=== PATIENT | female | born 1955 | race Caucasian/White ===

== ENCOUNTER 2024-02-10 09:36 | Inpatient (IN) ==
[2024-02-10] MEDS ORDERED: LORazepam 2 MG/ML VIAL ONE (09:39)
[2024-02-10] MEDS: LORazepam 2 MG/ML VIAL IVP ONE ×3 (09:40→21:02)
--- NOTE | 2024-02-10 10:07 | Emergency Department Note ---
HPI - Anxiety General Chief Complaint: SOB -Shortness of Breath Stated Complaint: COMPLICATIONS BREATHING Time Seen by Provider: 02/10/24 09:53 Source: patient Source comment: patient Mode of arrival: ambulance Limitations: no limitations History of Present Illness HPI narrative: 68-year-old female presented to ER via EMS from her primary care provider's office for reported shortness of breath and anxiety, on arrival patient's heart rate is elevated between 217 and 225. Patient reports that she is currently on Suboxone as well as Xanax for her anxiety and back pain. Patient reports that she is also currently on cefdinir for bronchiolitis. MD complaint: Reports anxiety and shortness of breath Onset (ago): hour(s) (1) Symptoms: Reports palpitations and other (Anxiety, cough, restlessness) Severity: moderate Quality: Reports constant Place: Reports other (Primary care provider's office) History of similar episodes: Yes Provoking factors: Reports emotional stress Relieving factors: Reports medication Exacerbating factors: Reports other (Not receiving her anxiety medication) Associated symptoms: Reports shortness of breath, palpitations and weakness Related Data Allergies Allergy/AdvReac Type Severity Reaction Status Date / Time No Known Drug Allergies Allergy Verified 02/10/24 09:50 Review of Systems Status of ROS 10 or more systems reviewed and unremark able except as noted in history and below; Negative unobtainable due to endotracheal tube, Negative unobtainable due to medical condition and Negative unobtainable due to mental status Constitutional Denies: fever, chills, change in weight, fatigue, malaise, night sweats, change in sleep pattern or other Eyes Denies: change in vision, blurry vision, blind spots, light sensitivity, eye discomfort, eye discharge, dry eyes, increased production of tears, floaters, seeing flashes, decreased night vision or other Ears, nose, mouth, and throat Denies: throat pain, neck pain, throat swelling, difficulty swallowing, hoarseness, mouth pain, swelling of lips/tongue, dry mouth, bad breath, ear pain, ear discharge, change in hearing, tinnitus, vertigo, nasal discharge, nasal congestion, nose bleeds, post nasal drip or other Cardiovascular Reports: palpitations; Denies: chest pain, edema, swelling of feet/ankles, lightheadedness, shortness of breath with exertion, shortness of breath when lying down, leg pain with exertion, bluish discoloration of hands/feet or other Respiratory Reports: shortness of breath, cough and chest congestion; Denies: wheezing, stridor, pain on inspiration, change in phlegm color, coughing up blood or other Gastrointestinal Reports: difficulty swallowing; Denies: abdominal pain, nausea, vomiting, coffee grounds in vomit, heartburn, diarrhea, constipation, bloating, belching, excessive passing of gas, feeling full early, change in bowel habits, painful bowel movements, rectal pain, rectal swelling, rectal itching, change in stool character, blood in stool, mucus in stool, white/light colored stool, fatty stool or other Genitourinary Denies: painful urination, urinary frequency, urinary urgency, urinary incontinence, blood in urine, difficulty voiding, decreased urine ouput, pelvic pain, painful menstruation, vaginal bleeding, vaginal discharge, irregular period, change in menstrual flow, absence of menstruation, genital lesion, genital itching, vaginal dryness, vaginal odor, pain during intercourse, difficulty conceiving, change in libido or other Musculoskeletal Reports: back pain; Denies: neck pain, extremity pain, extremity swelling, joint pain, limited range of motion, joint swelling, muscle cramps, muscle weakness, loss of height or other Integumentary/Breast Denies: rash, itching, redness, skin pain, skin tenderness, skin swelling, sores, new lesion, changing lesion, non-healing lesion, changes in skin color, jaundice, stretch deluna, acne, nail changes, change in hair, breast pain, breast swelling, nipple discharge, breast mass, breast skin changes, change in breast shape or other Neurological Denies: headache, numbness in extremities, weakness in extremitie s, lack of coordination, dizziness, vertigo, confusion, behavioral changes, slurred speech, difficulty communicating thoughts, seizure-like activity, involuntary movements or other Psychiatric Reports: anxiety; Denies: mood swings, panic attacks, change in sleep pattern, hopelessness, loss of interest, irritability, paranoia, memory loss, difficulty concentrating, visual hallucinations, auditory hallucinations, tactile hallucinations, suicidal ideation, homicidal ideation or other Endocrine Denies: excessive urination, excessive thirst, fatigue, cold intolerance, excessive sweating, flushing, heat intolerance, deepening of the voice, change in body appearance, change in libido or other Hematologic/Lymphatic Denies: easy bruising, easy bleeding, enlarged lymph nodes or other Allergic/Immunologic Denies: hives, throat swelling, tongue swelling, facial swelling, wheezing, itchy eyes, seasonal allergies, food intolerance or other PFSH PFSH Social History Feel stressed/tense/nervous/anxious/difficulty sleeping: very much Life stressor details: Lack of anxiety medication Exam Constitutional: normal general appearance, distress noted (moderate) and (respiratory), average body habitus, no limitations and alert Vital Signs - 24 hr 02/10/24 09:49 02/10/24 10:30 02/10/24 11:00 Temperature 98.8 F Pulse Rate 188 H 139 H 82 Respiratory Rate 24 26 H 18 Blood Pressure 175/100 116/81 111/70 Pulse Oximetry 96 95 94 L Oxygen Delivery Me thod Nasal Cannula Nasal Cannula Room Air Oxygen Flow Rate 4 4 02/10/24 11:30 02/10/24 12:00 02/10/24 12:30 Temperature Pulse Rate 71 60 82 Respiratory Rate 16 15 16 Blood Pressure 99/71 107/70 108/63 Pulse Oximetry 92 L 95 96 Oxygen Delivery Me thod Nasal Cannula Room Air Nasal Cannula Oxygen Flow Rate 4 4 02/10/24 13:00 02/10/24 13:30 Temperature Pulse Rate 76 72 Respiratory Rate 16 20 Blood Pressure 110/69 111/67 Pulse Oximetry 95 95 Oxygen Delivery Me thod Nasal Cannula Nasal Cannula Oxygen Flow Rate 4 4 HENMT: normocephalic, head/scalp atraumatic, hearing grossly normal bilaterally, external ears normal, EACs normal, nasal mucous membranes normal, external nose normal, oral mucous membranes normal, oropharynx normal, dentition normal and gingiva normal Eyes: PERRL, EOMs intact bilaterally, conjunctivae normal, no scleral icterus, no papilledema, normal visual maher by confrontation, alignment normal, periorbital findings normal and no nystagmus Neck/C-Spine: visual inspection normal, trachea midline, cervical spine nontender, cervical full ROM noted, supple, no meningeal signs and thyroid normal Lymph: no lymphadenopathy noted and no lymphedema noted Chest: inspection of chest normal, palpation of chest normal, inspection of breast(s) abnormal and palpation of breast(s) abnormal Respiratory: breath sounds equal bilaterally, normal respiratory effort, clear to auscultation bilaterally, no wheezes, no rales, no retractions and no use of accessory muscles Patient has noted nonproductive cough with clear lung maher. Cardiovascular: heart rate abnormal (217-225) (tachycardic), rhythm abnormal (Atrial fibrillation with RVR) (irregular), no gallop, no rub, no murmur, no JVD, no clicks, peripheral pulses 2+ throughout and no additional abnormal heart sounds Gastrointestinal: abdomen normal to inspection, abdomen soft to palpation, nontender to palpation, nondistended, normoactive bowel sounds, no hepatosplenomegaly, no masses, no pulsatile mass, no ascites and normal rectal exam (deferred) Genitourinary: no CVA tenderness, bladder normal to palpation, external appearance abnormal, vaginal abnormality noted (deferred), cervical abnormality noted, bimanual exam abnormal and inguinal lymphadenopathy noted Back/Pelvis: spine normal to inspection, no thoracic spine tenderness, no lumbar spine tenderness, thoracic spine ROM normal, lumbar spine ROM normal and no paraspinal muscle tenderness noted Extremities: normal to inspection, normal to palpation, no tenderness, full ROM, no joint enlargement and no deformity Neurology: operating room coordinator II-XII intact, no movement abnormality noted, no focal motor deficit noted, no sensory deficits noted, gait normal, speech normal, coordination normal, no pronator drift noted, no fasciculations noted and GCS normal Psychiatry: Mental Status Exam documented within this Exam's Psych section mental status grossly normal, oriented x3, thought process normal, cooperative, affect normal, psychomotor activity normal and memory normal Feel stressed/tense/nervous/anxious/difficulty sleeping: very much Life stressor details: Lack of anxiety medication Skin: skin color normal, no rash, no lesions, no ecchymosis noted, no wounds, no lacerations, skin turgor normal, no jaundice, no petechiae, no mottling, nails normal and no alopecia Course Course Hospital Course: 68-year-old female patient presented to ER via EMS from her primary care provider's office for anxiety and shortness of breath evaluated by physical exam, CBC, CMP, troponin, EKG, magnesium, phosphorus, urinalysis, and plain film chest x-ray results as noted in charting. On arrival patient is visibly anxious and was given 1 mg Ativan to help with her anxiety it provided minimal relief, patient is EKG was obtained showing atrial fibs with RVR at a rate of greater than 225, patient had IV established prior to leaving her primary care office so patient was given a bolus of 20 mg Cardizem IV push with noted improvement in heart rate and rhythm. Patient was watched for approximately 10 minutes with noted uptake in heart rate and change in cardiac rhythm patient was started on a Cardizem drip which help keep the patient's rate controlled in the 70s. Discussed possibility of transport to higher level of care for cardiology related to her new onset atrial fibs but due to patient's response to Cardizem we could also keep her an admission here while treating her bronchopneumonia with IV antibiotics with p.o. medication since heart rate had been reduced. Patient and decided to opt for staying here and following up with cardiology on p.o. medication and receive the IV antibiotics for her basilar bronchopneumonia. Patient had been on cefdinir previously through her primary care provider for her pneumonia and will be placed on IV antibiotics while staying here. Patient will continue to be monitored throughout her stay and if her heart rate should go back up or atrial fibrillation were not she will be given p.o. medications and transfer to a skull chopper at that time. Patient and family have agreed with treatment plan. Vital Signs Vital signs: Vital Signs Temperature 98.8 F 02/10/24 09:49 Pulse Rate 188 H 02/10/24 09:49 Respiratory Rate 24 02/10/24 09:49 Blood Pressure 175/100 02/10/24 09:49 Pulse Oximetry 96 02/10/24 09:49 Oxygen Delivery Method Nasal Cannula 02/10/24 09:49 Oxygen Flow Rate 4 02/10/24 09:49 Temperature 98.8 F 02/10/24 09:49 Pulse Rate 72 02/10/24 13:30 Respiratory Rate 20 02/10/24 13:30 Blood Pressure 111/67 02/10/24 13:30 Pulse Oximetry 95 02/10/24 13:30 Oxygen Delivery Method Nasal Cannula 02/10/24 13:30 Oxygen Flow Rate 4 02/10/24 13:30 MDM - Anxiety MDM Narrative Medical decision making narrative: Medical decision makers patient above physical exam, CBC, CMP, urinalysis, EKG, troponin, magnesium, and plain film chest x-ray. Differential Diagnosis Differential diagnosis: Likely panic disorder, acute anxiety and other (Atrial for with RVR, pneumonia, bronchitis, asthma, panic attack) Medical Records Attestation: I reviewed the patient's medical records. Lab Data Attestation: I reviewed the patient's lab results. Labs: Lab Results 02/10/24 Range/Units 10:15 WBC 7.1 (4.3-9.3) K/uL RBC 5.1 (4.00-5.50) M/uL Hgb 14.6 (12.5-15.8) gm/dL Hct 44.0 (35.9-46.7) % MCV 85.7 (81.0-93.7) fl MCH 28.4 (27.6-32.2) pg MCHC 33.1 (33.1-35.3) g/dl RDW 14.6 H (11.4-14.2) % Plt Count 180 (152-353) K/uL MPV 7.9 (6.9-10.8) fl Gran % 73.1 H (47.8-71.3) % Lymph % (Auto) 14.4 L (20.0-43.0) % [place] % (Auto) 12.0 H (3.6-9.8) % Eos % (Auto) 0.2 L (0.4-2.8) % Baso % (Auto) 0.3 (0.1-0.85) Lymph # (Auto) 1.0 L (1.1-3.1) [place] # (Auto) 0.9 L (1.1-3.1) Eos # (Auto) 0.0 (0.0-0.2) Baso # (Auto) 0.0 (0.0-0.1) Absolute Gran (auto) 5.2 (2.3-6.0) Sodium 140 (136-145) mmol/L Potassium 4.2 (3.6-5.2) mmol/L Chloride 101.0 (98-107) mmol/L Carbon Dioxide 33 H (21-32) mmol/L Anion Gap 6.0 (4-14) mEq/L BUN 15 (7-18) mg/dL Creatinine 0.8 (0.6-1.3) mg/dL Estimated GFR 81.2 (>59.9) Glucose 144 H (70-110) mg/dL Calcium 8.7 (8.5-10.1) mg/dL Magnesium 1.9 (1.8-2.4) mg/dL Total Bilirubin 0.74 (0.0-1.0) mg/dL AST 128 H (15-37) U/L ALT 66 H (30-65) U/L Alkaline Phosphatase 72 (50-136) U/L Troponin I High Sens 21.40 (4.0-60.4) ng/L Total Protein 7.8 (6.4-8.2) g/dL Albumin 3.7 (3.4-5.0) g/dL Influenza Type A Ag Negative (Negative) Influenza Type B Ag Negative (Negative) Imaging Data Imaging ordered: Chest x-ray Attestation: I have reviewed the pertinent imaging results. Radiologist's impression: EXAM: XR CHEST 1V HISTORY: DYSPNEA; CV COMPARISON: [facility] AP chest CT September 24, 2022 FINDINGS: The trachea is midline. The cardiac silhouette is normal in size. Mild emphysema is present. Patchy infiltrate is at right lower lung zones without pleural effusion. The bony thorax is unremarkable. IMPRESSION: Right lung base bronchopneumonia. THIS IS AN ELECTRONICALLY VERIFIED FINAL REPORT 02/10/2024 10:20 AM - Electronically signed by Bryan Montes MD ECG Data Attestation: I have reviewed the pertinent ECG results. Prior ECG tracings: not available for review Interpretation: Atrial fibrillation with RVR rate 217-225bpm Left anterior vascular block Probable left ventricular hypertrophy with secondary repolarization abnormality ST depression, probably rate related RR 277 QRS -84 T 104 Per patient's primary care provider patient does not have a history of atrial fib. Bradycardia with irregular rate rate of 47 Probable left ventricular hypertrophy RR 1272 ID 161 P axis 199 QRS -29 T 65 Discharge Plan Discharge Patient Disposition: Admitted As Observation Condition: Improved Chief Complaint: SOB -Shortness of Breath Clinical Impression: New onset atrial fibrillation, Anxiety, Bronchopneumonia, Hypoxia Print Language: Uzbek Referrals: Piter Rob [Primary Care Provider] - Time of Disposition: 14:15
[2024-02-10] MEDS: SODIUM CHLORIDE 0.9% IV STA (10:13)
[2024-02-10] MEDS: DILTIAZEM HCL IV STA (10:13)
[2024-02-10] MEDS ORDERED: DILTIAZEM HCL IV SCH (10:15)
[2024-02-10] MEDS ORDERED: SODIUM CHLORIDE 0.9% IV SCH (10:15)
[2024-02-10 10:23] LABS: Eosinophils%(Percent) Auto 0.2 % (0.4-2.8); Platelet Count 180 K/uL (152-353)
[2024-02-10 10:25] LABS: Basophils%(Percent) Auto 0.3 (0.1-0.85); Granulocytes % - Auto 73.1 % (47.8-71.3); Granulocytes#(Absolute)- Auto 5.2 (2.3-6.0); Mean Corpuscular Volume 85.7 fl (81.0-93.7); Monocytes #(Absolute)- Auto 0.9 (1.1-3.1); White Blood Count 7.1 K/uL (4.3-9.3)
[2024-02-10 10:47] LABS: Potassium 4.2 mmol/L (3.6-5.2)
[2024-02-10] MEDS ORDERED: ONDANSETRON HCL/PF 4 MG/2 ML VIAL ONE (11:55)
[2024-02-10] MEDS: ONDANSETRON HCL/PF 4 MG/2 ML VIAL IVP ONE (12:45)
[2024-02-10] MEDS ORDERED: KETOROLAC 30 MG/ML INJ VIAL IVP PRN (15:00)
[2024-02-10] MEDS ORDERED: ONDANSETRON HCL/PF 4 MG/2 ML VIAL INJ PRN (15:00)
[2024-02-10] MEDS: IPRATROPIUM/ALBUTEROL SULFATE 3 ML AMPUL.NEB INH SCH (15:24)
[2024-02-10] MEDS: AZITHROMYCIN 500 MG 500 MG in 0.9 % SODIUM CHLORIDE 250 ML IV SCH (16:06)
[2024-02-10] MEDS: 0.9 % SODIUM CHLORIDE 1000 ML 1,000 ML IV SCH (16:06)
[2024-02-10 16:10] LABS: Urine Appearance CLEAR (CLEAR); Urine Color YELLOW (STRAW/YELL.)
[2024-02-10 16:11] LABS: Urine Blood NEGATIVE (NEG - TRACE); Urine Urobilinogen Normal (NORMAL)
[2024-02-10] MEDS: BUDESONIDE 0.5 MG/2 ML AMPUL.NEB INH SCH (21:04)
[2024-02-11 04:48] LABS: Basophils%(Percent) Auto 0.6 (0.1-0.85); Eosinophils%(Percent) Auto 0.3 % (0.4-2.8); Granulocytes#(Absolute)- Auto 2.4 (2.3-6.0); Mean Corpuscular Volume 85.6 fl (81.0-93.7); Monocytes #(Absolute)- Auto 0.6 (1.1-3.1); Monocytes %(Percent)- Auto 13.1 % (3.6-9.8); Platelet Count 134 K/uL (152-353)
[2024-02-11] MEDS: CEFTRIAXONE SODIUM 1 GM in 0.9 % SODIUM CHLORIDE MB+ 50 ML IV SCH ×2 (08:13→15:48)
[2024-02-11] MEDS: DILTIAZEM HCL 120 MG PO SCH (14:03)
[2024-02-11 14:07] LABS: Amphetamine Screen Urine NEG. (NEGATIVE); Cannabinoid Screen Urine NEG. (NEGATIVE); Cocaine Screen Urine NEG. (NEGATIVE); Methadone Screen Urine NEG. (NEGATIVE); Opiate Screen Urine NEG. (NEGATIVE)
--- NOTE | 2024-02-11 15:06 | History & Physical Report ---
H&P: HPI History of Present Illness Chief complaint: BRONCHOPNEUMONIA, HYPOXIA, ANXIETY, NEWATRIAL FIBS Narrative: 68-year-old female presented to ER via EMS from her primary care provider's office for reported shortness of breath and anxiety, on arrival patient's heart rate is elevated between 217 and 225. Patient reports that she is currently on Suboxone as well as Xanax for her anxiety and back pain. Patient reports that she is also currently on cefdinir for bronchiolitis. Patient responded to bolus cardizem and drip actually recieved 125 mg over 1 hour and poison control contacted and they recommended patient be observed and precautions for bradycardia and hypotension. MD complaint: Reports anxiety and shortness of breath Review of Systems Status of ROS 10 or more systems reviewed and unremark able except as noted in history and below; Negative unobtainable due to endotracheal tube, Negative unobtainable due to medical condition and Negative unobtainable due to mental status Constitutional Denies: fever, chills, change in weight, fatigue, malaise, night sweats, change in sleep pattern or other Eyes Denies: change in vision, blurry vision, blind spots, light sensitivity, eye discomfort, eye discharge, dry eyes, increased production of tears, floaters, seeing flashes, decreased night vision or other Ears, nose, mouth, and throat Reports: difficulty swallowing; Denies: throat pain, neck pain, throat swelling, hoarseness, mouth pain, swelling of lips/tongue, dry mouth, bad breath, ear pain, ear discharge, change in hearing, tinnitus, vertigo, nasal discharge, nasal congestion, nose bleeds, post nasal drip or other Cardiovascular Reports: palpitations and shortness of breath with exertion; Denies: chest pain, edema, swelling of feet/ankles, lightheadedness, shortness of breath when lying down, leg pain with exertion, bluish discoloration of hands/feet or other Respiratory Reports: shortness of breath, cough and chest congestion; Denies: wheezing, stridor, pain on inspiration, change in phlegm color, coughing up blood or other Gastrointestinal Reports: difficulty swallowing; Denies: abdominal pain, nausea, vomiting, coffee grounds in vomit, heartburn, diarrhea, constipation, bloating, belching, excessive passing of gas, feeling full early, change in bowel habits, painful bowel movements, rectal pain, rectal swelling, rectal itching, change in stool character, blood in stool, mucus in stool, white/light colored stool, fatty stool or other Genitourinary Denies: painful urination, urinary frequency, urinary urgency, urinary incontinence, blood in urine, difficulty voiding, decreased urine ouput, pelvic pain, painful menstruation, vaginal bleeding, vaginal discharge, irregular period, change in menstrual flow, absence of menstruation, genital lesion, genital itching, vaginal dryness, vaginal odor, pain during intercourse, difficulty conceiving, change in libido or other Musculoskeletal Reports: back pain; Denies: neck pain, extremity pain, extremity swelling, joint pain, limited range of motion, joint swelling, muscle cramps, muscle weakness, loss of height or other Integumentary/Breast Denies: rash, itching, redness, skin pain, skin tenderness, skin swelling, sores, new lesion, changing lesion, non-healing lesion, changes in skin color, jaundice, stretch deluna, acne, nail changes, change in hair, breast pain, breast swelling, nipple discharge, breast mass, breast skin changes, change in breast shape or other Neurological Denies: headache, numbness in extremities, weakness in extremit ies, lack of coordination, dizziness, vertigo, confusion, behavioral changes, slurred speech, difficulty communicating thoughts, seizure-like activity, involuntary movements or other Psychiatric Reports: anxiety; Denies: mood swings, panic attacks, change in sleep pattern, hopelessness, loss of interest, irritability, paranoia, memory loss, difficulty concentrating, visual hallucinations, auditory hallucinations, tactile hallucinations, suicidal ideation, homicidal ideation or other Endocrine Denies: excessive urination, excessive thirst, fatigue, cold intolerance, excessive sweating, flushing, heat intolerance, deepening of the voice, change in body appearance, change in libido or other Hematologic/Lymphatic Denies: easy bruising, easy bleeding, enlarged lymph nodes or other Allergic/Immunologic Denies: hives, throat swelling, tongue swelling, facial swelling, wheezing, itchy eyes, seasonal allergies, food intolerance or other [facility] Medical History (Updated 02/11/24 @ 15:18 by Jia Hickman DO) History of ectopic Allergic rhinitis Vitamin D deficiency History of drug abuse in remission COPD exacerbation Anxiety GERD without esophagitis Surgical History (Updated 02/11/24 @ 15:18 by Jia Hickman DO) History of percutaneous endoscopic gastrostomy Hx of tracheostomy Hx of unilateral salpingectomy Social History Problems where you live: no known problems Highest level of school completed/degree received: College Feel stressed/tense/nervous/anxious/difficulty sleeping: very much Life stressor details: Lack of anxiety medication Meds Home Medications and Allergies Home Medications Medication Instructions Recorded Confirmed Type cefdinir 300 mg capsule 300 mg PO BID 02/10/24 02/10/24 History ergocalciferol (vitamin D2) 1,250 50,000 unit PO QWEEK 02/10/24 02/10/24 History mcg (50,000 unit) capsule gabapentin 800 mg tablet 800 mg PO TID 02/10/24 02/10/24 History levalbuterol HCl 0.63 mg/3 mL 0.63 mg inhalation Q4H 02/10/24 02/10/24 History solution for nebulization montelukast 10 mg tablet 10 mg PO DAILY 02/10/24 02/10/24 History ondansetron 8 mg disintegrating 8 mg PO Q8H PRN nausea and vomiting 02/10/24 02/10/24 History tablet pantoprazole 40 mg tablet,delayed 40 mg PO DAILY 02/10/24 02/10/24 History release Allergies Allergy/AdvReac Type Severity Reaction Status Date / Time zolpidem (From Ambien) AdvReac Verified 02/10/24 20:55 Exam Constitutional: normal general appearance, distress noted (moderate) and (respiratory), average body habitus, no limitations and alert Vital Signs - 24 hr 02/10/24 15:24 02/10/24 19:32 02/10/24 21:04 Temperature 98.5 F Pulse Rate Pulse Rate [Brachi al] 79 Respiratory Rate 22 Blood Pressure Blood Pressure [Ri ght Arm] 140/71 Pulse Oximetry 95 100 97 Oxygen Delivery Me thod Nasal Cannula Nasal Cannula Oxygen Flow Rate 4 02/10/24 21:04 02/10/24 23:29 02/11/24 03:31 Temperature 99.9 F H 98.9 F Pulse Rate Pulse Rate [Brachi al] 96 H 83 Respiratory Rate 19 20 Blood Pressure Blood Pressure [Ri ght Arm] 90/54 88/48 Pulse Oximetry 97 93 L 96 Oxygen Delivery Me thod Nasal Cannula Nasal Cannula Nasal Cannula Oxygen Flow Rate 2 02/11/24 07:30 02/11/24 07:30 02/11/24 08:00 Temperature 97.9 F Pulse Rate Pulse Rate [Brachi al] 98 H Respiratory Rate 18 Blood Pressure Blood Pressure [Ri ght Arm] 115/58 Pulse Oximetry 98 98 97 Oxygen Delivery Me thod Nasal Cannula Nasal Cannula Oxygen Flow Rate 3 2.5 02/11/24 11:14 02/11/24 12:00 02/11/24 14:03 Temperature 97.4 F L Pulse Rate 161 H Pulse Rate [Brachi al] 98 H Respiratory Rate 18 Blood Pressure 115/58 Blood Pressure [Ri ght Arm] 114/67 Pulse Oximetry 97 98 Oxygen Delivery Me thod Nasal Cannula Oxygen Flow Rate 1.5 02/11/24 14:03 Temperature Pulse Rate 161 H Pulse Rate [Brachi al] Respiratory Rate Blood Pressure 115/58 Blood Pressure [Ri ght Arm] Pulse Oximetry Oxygen Delivery Me thod Oxygen Flow Rate HENMT: normocephalic, head/scalp atraumatic, hearing grossly normal bilaterally, external ears normal, EACs normal, nasal mucous membranes normal, external nose normal, oral mucous membranes normal, oropharynx normal, dentition normal and gingiva normal Eyes: PERRL, EOMs intact bilaterally, conjunctivae normal, no scleral icterus, no papilledema, normal visual maher by confrontation, alignment normal, periorbital findings normal and no nystagmus Neck/C-Spine: visual inspection normal, trachea midline, cervical spine nontender, cervical full ROM noted, supple, no meningeal signs and thyroid normal Lymph: no lymphadenopathy noted and no lymphedema noted Chest: inspection of chest normal, palpation of chest normal, inspection of breast(s) abnormal and palpation of breast(s) abnormal Respiratory: breath sounds equal bilaterally, normal respiratory effort, clear to auscultation bilaterally, no wheezes, no rales, no retractions and no use of accessory muscles Patient has noted nonproductive cough with clear lung maher. Cardiovascular: heart rate abnormal (217-225) (tachycardic), rhythm abnormal (Atrial fibrillation with RVR) (irregular), no gallop, no rub, no murmur, no JVD, no clicks, peripheral pulses 2+ throughout and no additional abnormal heart sounds Gastrointestinal: abdomen normal to inspection, abdomen soft to palpation, nontender to palpation, nondistended, normoactive bowel sounds, no hepatosplenomegaly, no masses, no pulsatile mass, no ascites and normal rectal exam (deferred) Genitourinary: no CVA tenderness, bladder normal to palpation, external appearance abnormal, vaginal abnormality noted (deferred), cervical abnormality noted, bimanual exam abnormal and inguinal lymphadenopathy noted Back/Pelvis: spine normal to inspection, no thoracic spine tenderness, no lumbar spine tenderness, thoracic spine ROM normal, lumbar spine ROM normal and no paraspinal muscle tenderness noted Extremities: normal to inspection, normal to palpation, no tenderness, full ROM, no joint enlargement and no deformity Neurology: comber operator II-XII intact, no movement abnormality noted, no focal motor deficit noted, no sensory deficits noted, gait normal, speech normal, coordination normal, no pronator drift noted, no fasciculations noted and GCS normal Psychiatry: Mental Status Exam documented within this Exam's Psych section mental status grossly normal, oriented x3, thought process normal, cooperative, affect normal, psychomotor activity normal and memory normal Skin: skin color normal, no rash, no lesions, no ecchymosis noted, no wounds, no lacerations, skin turgor normal, no jaundice, no petechiae, no mottling, nails normal and no alopecia Assessment and Plan Assessment and Plan (1) Atrial fibrillation with RVR: Code(s): I48.91 - Unspecified atrial fibrillation (2) Community acquired pneumonia of right lower lobe of lung: Code(s): J18.9 - Pneumonia, unspecified organism (3) New onset atrial fibrillation: Code(s): I48.91 - Unspecified atrial fibrillation (4) Anxiety: Code(s): F41.9 - Anxiety disorder, unspecified (5) GERD without esophagitis: Code(s): K21.9 - Gastro-esophageal reflux disease without esophagitis (6) History of drug abuse in remission: Code(s): F19.11 - Other psychoactive substance abuse, in remission (7) COPD exacerbation: Code(s): J44.1 - Chronic obstructive pulmonary disease with (acute) exacerbation Plan fluids at 100 ml per hour solumedrol 40 mg IV every 8 hours Ativan 1 mg every 12 hours to stop benzo withdrawals as patient taken them for years Rocephin 1 gram IV every 12 hours Zithromax 500 mg IV every day nuclear monitoring technician and continuous pulse ox oxygen 2 liters as tolerated as patient uses at home at night and PRN start Eliquis 5 mg po bid Cardizem CD 120 mg po daily once out from the accidental bolus of Cardizem Results Labs Labs: CBC WBC 5.0 K/uL (4.3-9.3) 02/11/24 04:40 RBC 4.0 M/uL (4.00-5.50) 02/11/24 04:40 Hgb 11.1 gm/dL (12.5-15.8) L 02/11/24 04:40 Hct 34.0 % (35.9-46.7) L 02/11/24 04:40 MCV 85.6 fl (81.0-93.7) 02/11/24 04:40 MCH 27.8 pg (27.6-32.2) 02/11/24 04:40 MCHC 32.5 g/dl (33.1-35.3) L 02/11/24 04:40 RDW 14.3 % (11.4-14.2) H 02/11/24 04:40 Plt Count 134 K/uL (152-353) L 02/11/24 04:40 MPV 7.6 fl (6.9-10.8) 02/11/24 04:40 Gran % 49.0 % (47.8-71.3) 02/11/24 04:40 Lymph % (Auto) 37.0 % (20.0-43.0) 02/11/24 04:40 Guthrie % (Auto) 13.1 % (3.6-9.8) H 02/11/24 04:40 Eos % (Auto) 0.3 % (0.4-2.8) L 02/11/24 04:40 Baso % (Auto) 0.6 (0.1-0.85) 02/11/24 04:40 Lymph # (Auto) 1.8 (1.1-3.1) 02/11/24 04:40 Guthrie # (Auto) 0.6 (1.1-3.1) L 02/11/24 04:40 Eos # (Auto) 0.0 (0.0-0.2) 02/11/24 04:40 Baso # (Auto) 0.0 (0.0-0.1) 02/11/24 04:40 Absolute Gran (auto) 2.4 (2.3-6.0) 02/11/24 04:40 BMP Sodium 141 mmol/L (136-145) 02/11/24 04:40 Potassium 4.0 mmol/L (3.6-5.2) 02/11/24 04:40 Chloride 103.0 mmol/L (98-107) 02/11/24 04:40 Carbon Dioxide 32 mmol/L (21-32) 02/11/24 04:40 Anion Gap 6.0 mEq/L (4-14) 02/11/24 04:40 BUN 10 mg/dL (7-18) 02/11/24 04:40 Creatinine 0.6 mg/dL (0.6-1.3) 02/11/24 04:40 Estimated GFR 98.9 (>59.9) 02/11/24 04:40 Glucose 106 mg/dL (70-110) 02/11/24 04:40 Calcium 8.4 mg/dL (8.5-10.1) L 02/11/24 04:40 Magnesium 1.9 mg/dL (1.8-2.4) 02/10/24 10:15 Total Bilirubin 0.46 mg/dL (0.0-1.0) 02/11/24 04:40 AST 82 U/L (15-37) H 02/11/24 04:40 ALT 44 U/L (30-65) 02/11/24 04:40 Alkaline Phosphatase 54 U/L (50-136) 02/11/24 04:40 Total Protein 6.3 g/dL (6.4-8.2) L 02/11/24 04:40 Albumin 3.0 g/dL (3.4-5.0) L 02/11/24 04:40 Cardiac Enzymes Troponin I High Sens 21.40 ng/L (4.0-60.4) 02/10/24 10:15 Liver Function Total Bilirubin 0.46 mg/dL (0.0-1.0) 02/11/24 04:40 AST 82 U/L (15-37) H 02/11/24 04:40 ALT 44 U/L (30-65) 02/11/24 04:40 Alkaline Phosphatase 54 U/L (50-136) 02/11/24 04:40 Total Protein 6.3 g/dL (6.4-8.2) L 02/11/24 04:40 Albumin 3.0 g/dL (3.4-5.0) L 02/11/24 04:40 Urine Urine Color Yellow (STRAW/YELL.) 02/10/24 16:05 Urine Appearance Clear (CLEAR) 02/10/24 16:05 Ur Specific [place] 1.030 (1.001-1.035) 02/10/24 16:05 Urine Protein Trace (NEGATIVE) 02/10/24 16:05 Urine Glucose (UA) Normal (NORMAL) 02/10/24 16:05 Urine Ketones Negative (NEGATIVE) 02/10/24 16:05 Urine Occult Blood Negative (NEG - TRACE) 02/10/24 16:05 Urine Nitrite Negative (NEGATIVE) 02/10/24 16:05 Urine Bilirubin Negative (NEGATIVE) 02/10/24 16:05 Urine Urobilinogen Normal (NORMAL) 02/10/24 16:05 Ur Leukocyte Esterase Negative (NEGATIVE) 02/10/24 16:05 ABG Attestation: I have reviewed the pertinent ABG results. Pulse Oximetry Attestation: I have reviewed the pertinent pulse oximetry results. ECG Attestation: I have reviewed the pertinent ECG results. Imaging Imaging ordered: Chest x-ray Radiologist's impression: XR CHEST 1V HISTORY: DYSPNEA; CV COMPARISON: [facility] chest CT September 24, 2022 FINDINGS: The trachea is midline. The cardiac silhouette is normal in size. Mild emphysema is present. Patchy infiltrate is at right lower lung zones without pleural effusion. The bony thorax is unremarkable. IMPRESSION: Right lung base bronchopneumonia.
[2024-02-11] MEDS: APIXABAN 2.5 MG TABLET PO SCH (15:16)
[2024-02-11] MEDS: MONTELUKAST SODIUM 10 MG TABLET PO SCH (15:17)
[2024-02-11] MEDS: PANTOPRAZOLE SODIUM 40 MG TABLET.DR PO SCH (15:17)
[2024-02-11] MEDS: LORazepam 2 MG/ML VIAL IVP PRN (16:21)
[2024-02-11] MEDS: METHYLPREDNISOLONE SOD SUCC/PF 40 MG/ML VIAL INJ SCH (16:21)
[2024-02-11] MEDS ORDERED: CEFTRIAXONE SODIUM 1 GM in 0.9 % SODIUM CHLORIDE MB+ 50 ML IV SCH (17:00)
[2024-02-11] MEDS: METOPROLOL TARTRATE 5 MG/5 ML VIAL INJ ONE (18:23)
[2024-02-11] MEDS: levalbuterol HCL 1.25 MG/3 ML VIAL.NEB INH SCH (20:51)
[2024-02-12] MEDS: LORazepam 2 MG/ML VIAL IVP ONE ×2 (01:37→12:01)
[2024-02-12] MEDS: MORPHINE SULFATE 4 MG/ML CARTRIDGE IV PRN (01:38)
[2024-02-12 06:22] LABS: Potassium 3.7 mmol/L (3.6-5.2)
[2024-02-12 06:37] LABS: Basophils%(Percent) Auto 0.3 (0.1-0.85); Granulocytes % - Auto 79.8 % (47.8-71.3); Hematocrit 35.4 % (35.9-46.7); Mean Corpuscular Volume 85.4 fl (81.0-93.7); Monocytes #(Absolute)- Auto 0.1 (1.1-3.1); Monocytes %(Percent)- Auto 3.1 % (3.6-9.8); Platelet Count 141 K/uL (152-353); White Blood Count 2.5 K/uL (4.3-9.3)
[2024-02-12] MEDS ORDERED: BUPRENORPHINE HCL PO PRN (11:39)
[2024-02-12] MEDS ORDERED: NALOXONE HCL PO PRN (11:39)
--- NOTE | 2024-02-12 11:41 | Progress Note ---
Progress Note: Subjective Subjective Interval history: Patient not sleeping well and despite ativan and morphine patient only slept for 30 minutes or so. Not had her suboxone since in the hospital and not on her home med list at this time but patient reports taking 8/2 at home 3 times a day and she is in the process with Shani from Dr Alves office of weaning off of the medicine. patient states she is breathing better today and really wants to go home so she can get her suboxone and her gabepentin and she thinks her breathing is better and she is upset that she has not been able to sleep. Exam Constitutional: abnormal general appearance (disheveled), (chronically ill) and (frail appearing), distress noted (moderate) and (respiratory), abnormal body habitus (cachectic) and (thin), limitations noted (physical limitations) and alert Vital Signs - 24 hr 02/11/24 12:00 02/11/24 14:03 02/11/24 14:03 Temperature 97.4 F L Pulse Rate 161 H 161 H Pulse Rate [Brachi al] 98 H Respiratory Rate 18 Blood Pressure 115/58 115/58 Blood Pressure [Ri ght Arm] 114/67 Pulse Oximetry 98 Oxygen Delivery Me thod Nasal Cannula Oxygen Flow Rate 1.5 02/11/24 15:00 02/11/24 15:17 02/11/24 15:43 Temperature 98.4 F Pulse Rate 108 H Pulse Rate [Brachi al] 94 H Respiratory Rate 18 Blood Pressure 110/80 Blood Pressure [Ri ght Arm] 120/75 Pulse Oximetry 98 95 Oxygen Delivery Me thod Oxygen Flow Rate 02/11/24 18:23 02/11/24 18:37 02/11/24 20:00 Temperature 98.1 F Pulse Rate 158 H 118 H Pulse Rate [Brachi al] 98 H Respiratory Rate 24 Blood Pressure 123/62 Blood Pressure [Ri ght Arm] 131/77 Pulse Oximetry 92 L Oxygen Delivery Me thod Nasal Cannula Oxygen Flow Rate 4 02/11/24 20:51 02/11/24 20:52 02/12/24 00:00 Temperature 97.6 F Pulse Rate Pulse Rate [Brachi al] 93 H Respiratory Rate 22 Blood Pressure Blood Pressure [Ri ght Arm] 121/70 Pulse Oximetry 97 97 93 L Oxygen Delivery Me thod Nasal Cannula Nasal Cannula Oxygen Flow Rate 2 02/12/24 04:00 02/12/24 04:32 02/12/24 07:42 Temperature 97.4 F L Pulse Rate Pulse Rate [Brachi al] 74 Respiratory Rate 22 Blood Pressure Blood Pressure [[facility] Arm] 125/61 Pulse Oximetry 94 L 99 93 L Oxygen Delivery Me thod Nasal Cannula Oxygen Flow Rate 02/12/24 07:42 02/12/24 07:57 02/12/24 09:14 Temperature 97.9 F Pulse Rate 89 Pulse Rate [Brachi al] 72 Respiratory Rate 16 Blood Pressure Blood Pressure [[facility] Arm] 128/66 Pulse Oximetry 93 L 98 Oxygen Delivery Me thod Nasal Cannula Aerosol Mask Oxygen Flow Rate 2 HENMT: normocephalic, head/scalp atraumatic, hearing grossly normal bilateral ly, external ears normal, EACs normal, TMs abnormal, nasal mucous membranes normal, external nose normal, oral mucous membranes normal, oropharynx abnormal, dentition normal and gingiva normal Eyes: PERRL, EOMs intact bilaterally, conjunctivae normal, no scleral icterus, papilledema noted, normal visual maher by confrontation, alignment normal, periorbital findings normal and no nystagmus Neck/C-Spine: trachea midline, cervical spine tenderness noted, abnormal cervical ROM noted, not supple (posterior leads tight and head leans forward), no meningeal signs and thyroid normal Lymph: no lymphadenopathy noted and no lymphedema noted Chest: inspection of chest normal, palpation of chest normal, inspection of breast(s) abnormal and palpation of breast(s) abnormal Respiratory: breath sounds equal bilaterally, normal respiratory effort, clear to auscultation bilaterally, no wheezes, no rales, no retractions and no use of accessory muscles Patient has noted nonproductive cough with clear lung maher. Cardiovascular: heart rate abnormal (217-225) (tachycardic), rhythm abnormal (Atrial fibrillation with RVR) (irregular), no gallop, no rub, no murmur, no JVD, no clicks, peripheral pulses 2+ throughout and no additional abnormal heart sounds Gastrointestinal: abdomen normal to inspection, abdomen soft to palpation, nontender to palpation, nondistended, normoactive bowel sounds, no hepatosplenomegaly, no masses, no pulsatile mass, no ascites, no hernia and normal rectal exam (deferred) Genitourinary: no CVA tenderness, bladder normal to palpation, external appearance abnormal, vaginal abnormality noted (deferred), cervical abnormality noted, bimanual exam abnormal and inguinal lymphadenopathy noted Back/Pelvis: spine normal to inspection, no thoracic spine tenderness, no lumbar spine tenderness, thoracic spine ROM normal, lumbar spine ROM normal and no paraspinal muscle tenderness noted Extremities: normal to palpation, no tenderness, full ROM, joint enlargement noted and no deformity Neurology: food and beverage controller II-XII intact, no movement abnormality noted, no focal motor deficit noted, sensory deficit noted, deep tendon reflexes 2+ bilaterally, gait abnormality noted, speech normal, coordination normal, no pronator drift noted, no fasciculations noted and GCS normal Psychiatry: Mental Status Exam documented within this Exam's Psych section mental status grossly normal, oriented x3, thought process abnormality noted (racing thoughts), cooperative, affect abnormality noted (anxious), psychomotor abnormality noted (agitated) and (restless) and memory normal Feel stressed/t ense/nervous/anxious/difficulty sleeping: decline to answer Skin: skin color normal, no rash, no lesions, no ecchymosis noted, no wounds, no lacerations, skin turgor normal, no jaundice, no petechiae, no mottling, nails abnormality noted and no alopecia Progress Note: Objective Labs Labs: CBC WBC 2.5 K/uL (4.3-9.3) L 02/12/24 05:08 RBC 4.1 M/uL (4.00-5.50) 02/12/24 05:08 Hgb 11.6 gm/dL (12.5-15.8) L 02/12/24 05:08 Hct 35.4 % (35.9-46.7) L 02/12/24 05:08 MCV 85.4 fl (81.0-93.7) 02/12/24 05:08 MCH 27.9 pg (27.6-32.2) 02/12/24 05:08 MCHC 32.7 g/dl (33.1-35.3) L 02/12/24 05:08 RDW 14.1 % (11.4-14.2) 02/12/24 05:08 Plt Count 141 K/uL (152-353) L 02/12/24 05:08 MPV 8.2 fl (6.9-10.8) 02/12/24 05:08 Gran % 79.8 % (47.8-71.3) H 02/12/24 05:08 Lymph % (Auto) 16.8 % (20.0-43.0) L 02/12/24 05:08 Dale % (Auto) 3.1 % (3.6-9.8) L 02/12/24 05:08 Eos % (Auto) 0.0 % (0.4-2.8) L 02/12/24 05:08 Baso % (Auto) 0.3 (0.1-0.85) 02/12/24 05:08 Lymph # (Auto) 0.4 (1.1-3.1) L 02/12/24 05:08 Dale # (Auto) 0.1 (1.1-3.1) L 02/12/24 05:08 Eos # (Auto) 0.0 (0.0-0.2) 02/12/24 05:08 Baso # (Auto) 0.0 (0.0-0.1) 02/12/24 05:08 Absolute Gran (auto) 2.0 (2.3-6.0) L 02/12/24 05:08 BMP Sodium 145 mmol/L (136-145) 02/12/24 05:08 Potassium 3.7 mmol/L (3.6-5.2) 02/12/24 05:08 Chloride 105.0 mmol/L (98-107) 02/12/24 05:08 Carbon Dioxide 33 mmol/L (21-32) H 02/12/24 05:08 Anion Gap 7.0 mEq/L (4-14) 02/12/24 05:08 BUN 6 mg/dL (7-18) L 02/12/24 05:08 Creatinine 0.5 mg/dL (0.6-1.3) L 02/12/24 05:08 Estimated GFR 103.4 (>59.9) 02/12/24 05:08 Glucose 149 mg/dL (70-110) H 02/12/24 05:08 Calcium 8.8 mg/dL (8.5-10.1) 02/12/24 05:08 Phosphorus 3.2 mg/dL (2.5-4.9) 02/12/24 05:08 Magnesium 1.9 mg/dL (1.8-2.4) 02/12/24 05:08 Total Bilirubin 0.47 mg/dL (0.0-1.0) 02/12/24 05:08 AST 71 U/L (15-37) H 02/12/24 05:08 ALT 51 U/L (30-65) 02/12/24 05:08 Alkaline Phosphatase 57 U/L (50-136) 02/12/24 05:08 Total Protein 7.0 g/dL (6.4-8.2) 02/12/24 05:08 Albumin 3.2 g/dL (3.4-5.0) L 02/12/24 05:08 Cardiac Enzymes Troponin I High Sens 21.40 ng/L (4.0-60.4) 02/10/24 10:15 Liver Function Total Bilirubin 0.47 mg/dL (0.0-1.0) 02/12/24 05:08 AST 71 U/L (15-37) H 02/12/24 05:08 ALT 51 U/L (30-65) 02/12/24 05:08 Alkaline Phosphatase 57 U/L (50-136) 02/12/24 05:08 Total Protein 7.0 g/dL (6.4-8.2) 02/12/24 05:08 Albumin 3.2 g/dL (3.4-5.0) L 02/12/24 05:08 Urine Urine Color Yellow (STRAW/YELL.) 02/10/24 16:05 Urine Appearance Clear (CLEAR) 02/10/24 16:05 Ur Specific [place] 1.030 (1.001-1.035) 02/10/24 16:05 Urine Protein Trace (NEGATIVE) 02/10/24 16:05 Urine Glucose (UA) Normal (NORMAL) 02/10/24 16:05 Urine Ketones Negative (NEGATIVE) 02/10/24 16:05 Urine Occult Blood Negative (NEG - TRACE) 02/10/24 16:05 Urine Nitrite Negative (NEGATIVE) 02/10/24 16:05 Urine Bilirubin Negative (NEGATIVE) 02/10/24 16:05 Urine Urobilinogen Normal (NORMAL) 02/10/24 16:05 Ur Leukocyte Esterase Negative (NEGATIVE) 02/10/24 16:05 ECG Attestation: I have reviewed the pertinent ECG results. Imaging Chest x-ray: Attestation: I have reviewed the pertinent imaging results. Radiologist's impression: Chest PA and lateral views HISTORY: Follow-up pneumonia COMPARISON: 02/10/2024 FINDINGS: Heart size normal with symmetric pulmonary hyperinflation. The left lung remains clear. There is a persistent infiltrate in the medial segment of the right middle lobe. No dominant mass, adenopathy or pleural effusion. IMPRESSION: Unchanged appearance of right middle lobe pneumonia/atelectasis. 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 Fall Risk Details Aguirre Fall Scale Risk Level: Moderate Fall Risk Current Medications: Current Medications Apixaban (Apixaban 2.5 Mg Tablet) 5 mg PO BID [facility] Last Admin: 02/12/24 09:14 Dose: 5 mg Budesonide (Budesonide 0.5 Mg/2 Ml Ampul.Neb) 1 mg INH RBID [facility] Last Admin: 02/12/24 07:42 Dose: 1 mg Diltiazem HCl (Diltiazem Hcl 120 Mg Cap.Er.12h) 120 mg PO DAILY [facility] Last Admin: 02/12/24 09:14 Dose: 120 mg Azithromycin 500 mg/ Sodium (Chloride) 250 mls @ 250 mls/hr IV Q24H [facility] Stop: 02/12/24 16:59 Last Infusion: 02/11/24 16:28 Dose: Infused Ceftriaxone Sodium 1 gm/ (Sodium Chloride) 50 mls @ 100 mls/hr IV Q12H [facility] Last Infusion: 02/12/24 04:01 Dose: Infused Ketorolac Tromethamine (Ketorolac 30 Mg/Ml Inj Vial) 15 mg IVP Q6H PRN PRN Reason: Moderate Pain SCALE 5-7 Levalbuterol HCl (Levalbuterol Hcl 1.25 Mg/3 Ml Vial.Neb) 1.25 mg INH RQ8 [facility] Last Admin: 02/11/24 20:51 Dose: 1.25 mg Lorazepam (Lorazepam 2 Mg/Ml Vial) 1 mg IVP Q12H PRN; Protocol PRN Reason: Anxiety Last Admin: 02/11/24 16:21 Dose: 1 mg Methylprednisolone Sodium Succinate (Methylprednisolone Sod Succ/Pf 40 Mg/Ml Vial) 40 mg INJ Q8H [facility] Last Admin: 02/12/24 09:14 Dose: 40 mg Montelukast Sodium (Montelukast Sodium 10 Mg Tablet) 10 mg PO DAILY [facility] Last Admin: 02/12/24 09:14 Dose: 10 mg Morphine Sulfate (Morphine Sulfate 4 Mg/Ml Cartridge) 4 mg IV Q6H PRN PRN Reason: Severe Pain SCALE 8-10 Last Admin: 02/12/24 01:38 Dose: 4 mg Non-Formulary Medication (Gabapentin) 800 mg PO TID [facility] Ondansetron HCl (Ondansetron Hcl/Pf 4 Mg/2 Ml Vial) 4 mg INJ Q6H PRN PRN Reason: Nausea And Vomiting Pantoprazole Sodium (Pantoprazole Sodium 40 Mg Tablet.) 40 mg PO DAILY [facility] Last Admin: 02/12/24 09:14 Dose: 40 mg Time Spent With Patient Time: Total time spent is greater than 50% in coordination of care (as documented) at patient's floor/unit and/or counseling patient: Time with patient: greater than 35 minutes
[2024-02-12] MEDS: MELATONIN 5 MG TABLET PO ONE (12:01)
[2024-02-12] MEDS: GABAPENTIN 400 MG CAPSULE PO SCH (15:13)
[2024-02-13 04:03] VITALS: TEMP 98.3
[2024-02-13 05:16] LABS: Basophils%(Percent) Auto 0.1 (0.1-0.85); Granulocytes % - Auto 89.9 % (47.8-71.3); Granulocytes#(Absolute)- Auto 7.8 (2.3-6.0); Hematocrit 33.1 % (35.9-46.7); Monocytes #(Absolute)- Auto 0.4 (1.1-3.1); Monocytes %(Percent)- Auto 4.2 % (3.6-9.8); Platelet Count 161 K/uL (152-353); White Blood Count 8.6 K/uL (4.3-9.3)
[2024-02-13 05:33] LABS: Potassium 3.9 mmol/L (3.6-5.2)
[2024-02-13 07:32] VITALS: RESP 19
[2024-02-13 08:28] VITALS: BP 131/61; PULSE 67
--- NOTE | 2024-02-13 13:56 | Discharge Summary ---
DS: Providers Provider Date of admission: 02/10/24 14:33 Primary care physician: Piter Rob Admitting clinician: Elmer Lozano Attending physician on admission: Jia Hickman Attending physician on discharge: Jia Hickman Discharging clinician: Jia Hickman Anticipated date of discharge: 02/13/24 DS: Diagnosis Discharge Diagnosis (1) Atrial fibrillation with RVR: (2) Community acquired pneumonia of right lower lobe of lung: (3) New onset atrial fibrillation: (4) Anxiety: (5) GERD without esophagitis: (6) History of drug abuse in remission: (7) COPD exacerbation: (8) Supraventricular tachycardia: (9) Pulmonary hypertension: (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 DS: Summary Hospital Course Hospital Course: 68-year-old female patient presented to ER via EMS from her primary care provider's office for anxiety and shortness of breath evaluated by physical exam, CBC, CMP, troponin, EKG, magnesium, phosphorus, urinalysis, and plain film chest x-ray results as noted in charting. On arrival patient is visibly anxious and was given 1 mg Ativan to help with her anxiety it provided minimal relief, patient's EKG was obtained showing atrial fibs with RVR at a rate of greater than 225, patient had IV established prior to leaving her primary care office so patient was given a bolus of 20 mg Cardizem IV push with noted improvement in heart rate and rhythm. Patient was watched for approximately 10 minutes with noted uptake in heart rate and change in cardiac rhythm patient was started on a Cardizem drip which help keep the patient's rate controlled in the 70s. Discussed possibility of transport to higher level of care for cardiology related to her new onset atrial fibs but due to patient's response to Cardizem we could also keep her and admit here while treating her bronchopneumonia with IV antibiotics with p.o. medication since heart rate had been reduced. Patient and decided to opt for staying here and following up with cardiology on p.o. medication and receive the IV antibiotics for her basilar bronchopneumonia. Patient had been on cefdinir previously through her primary care provider for her pneumonia and will be placed on IV antibiotics while staying here. Patient will continue to be monitored throughout her stay and if her heart rate should go back up or atrial fibrillation were not stable, she will be given p.o. medications and transferred to a production assembly operator at that time. Patient and family have agreed with treatment plan. Admitted patient to med/surg for observation and treatment. Day 1 of hospital stay, patient reports anxiety and shortness of breath as chief complaint this day. New onset Atrial Fibrillation with RVR diagnosis has been given. Patient will continue on Admissions Advisor and Continuous Pulse Ox. Oxygen is going via nasal canula at 2 liters, she uses home O2. She was started on Solu Medrol, Rocephin, and Zithromax to treat pneumonia. Cardizem and Eliquis has been started for hypertension control. Ativan has been added to stop benzo withdrawals as patient has taken them for years. Chest X-Ray 1 View findings sh ow: The trachea is midline. The cardiac silhouette is normal in size. Mild emphysema is present. Patchy infiltrate is at right lower lung zones without pleural effusion. The bony thorax is unremarkable. Impression: Right lung base bronchopneumonia. Patient is to stay for continued care as inpatient. Day 2 of hospital stay, patient is complaining of back pain and not sleeping well despite Ativan and morphine. She reports only sleeping for 30 minutes. Patient is anxious to go home so she can get her Suboxone since she has not had it while in the hospital. She reports she takes 8/2 at home 3 times a day, she is also working with Shani at Dr. Alves office to help wean her off the medicine. Patient states she is breathing better today and upset about not being able to sleep. Her Suboxone is currently not showing on her home medication list. Nursing staff reports patient has racing thoughts, anxious, agitated and restless today. Repeat of Chest X-Ray with 2 view was performed, Findings in clude: Heart size normal with symmetric pulmonary hyperinflation. The left lung remains clear. There is a persistent infiltrate in the medial segment of the right middle lobe. No dominant mass, adenopathy or pleural effusion. Impression reflects: Unchanged appearance of right middle lobe pneumonia/atelectasis. Patient will continue to benefit from inpatient care and treatment at this time. Day 3 of hospital stay, Echocardiogram was performed and reflected right side heart pressure of 60. Patient is very adamant about going home today and still wheezing throughout. Provider recommends stopping Albuterol, increase water and protein intake, follow up with Cardiology within the month, follow up with Dr. Alcala - Pulmonology as patient is established, recommend out-patient Nuclear Stress Test, and follow up with her PCP in 1 week or sooner if any concerns or worsening symptoms. Continue oxygen at home as needed. Status at Discharge Functional status at discharge: independent ambulation Overall status at discharge: patient is back to baseline Time Spent with Patient Time attestation: Total time spent providing and/or coordinating discharge services: Time spent: greater than 30 minutes Exam Exam: Patient was sitting up at bedside upon entering room for exam. Constitutional: abnormal general appearance (chronically ill) and (frail appearing), distress noted (mild) and (respiratory), abnormal body habitus (thin), limitations noted (physical limitations) and alert Vital Signs - 24 hr 02/12/24 11:42 02/12/24 12:00 02/12/24 16:00 Temperature 97.8 F 98.0 F Pulse Rate Pulse Rate [Brachi al] 79 72 Respiratory Rate 18 16 Blood Pressure Blood Pressure [Ri ght Arm] 107/65 89/54 Pulse Oximetry 95 92 L 92 L Oxygen Delivery Me thod Nasal Cannula Nasal Cannula Oxygen Flow Rate 0.5 0.5 Fraction of Inspir ed Oxygen 02/12/24 20:00 02/12/24 20:46 02/12/24 20:46 Temperature 98.3 F Pulse Rate Pulse Rate [Brachi al] 79 Respiratory Rate 21 Blood Pressure Blood Pressure [Ri ght Arm] 97/54 Pulse Oximetry 93 L 95 95 Oxygen Delivery Me thod Nasal Cannula Nasal Cannula Oxygen Flow Rate 4 1 Fraction of Inspir ed Oxygen 02/12/24 23:31 02/13/24 04:00 02/13/24 07:31 Temperature 97.9 F 98.3 F 98.3 F Pulse Rate Pulse Rate [Brachi al] 71 68 66 Respiratory Rate 19 20 19 Blood Pressure Blood Pressure [Ri ght Arm] 141/69 94/56 135/66 Pulse Oximetry 92 L 94 L 94 L Oxygen Delivery Me thod Nasal Cannula Nasal Cannula Nasal Cannula Oxygen Flow Rate 1 Fraction of Inspir ed Oxygen 02/13/24 08:16 02/13/24 08:16 02/13/24 08:27 Temperature Pulse Rate 67 Pulse Rate [Brachi al] Respiratory Rate Blood Pressure 131/61 Blood Pressure [Ri ght Arm] Pulse Oximetry 94 L 94 L Oxygen Delivery Me thod Oxygen Flow Rate Fraction of Inspir ed Oxygen 21 HENMT: normocephalic, head/scalp atraumatic, hearing grossly normal bilaterally, external ears normal, EACs normal, TMs abnormal, nasal mucous membranes normal, external nose normal, oral mucous membranes normal, oropharynx abnormal, dentition normal and gingiva normal Eyes: PERRL, EOMs intact bilaterally, conjunctivae normal, no scleral icterus, papilledema noted, normal visual maher by confrontation, alignment normal, periorbital findings normal and no nystagmus Neck/C-Spine: visual inspection normal, trachea midline, cervical spine tenderness noted, abnormal cervical ROM noted, not supple (posterior leads tight and head leans forward), no meningeal signs and thyroid normal Lymph: no lymphadenopathy noted and no lymphedema noted Chest: inspection of chest normal and palpation of chest normal Respiratory: breath sounds equal bilaterally, normal respiratory effort, clear to auscultation bilaterally and wheezing noted (scattered wheezes) (throughout) Patient has noted nonproductive cough with clear lung maher. Cardiovascular: normal heart rate noted, rhythm abnormal (Atrial fibrillation with RVR) (irregular), no gallop, no rub, no murmur, no JVD, no clicks and peripheral pulses 2+ throughout Gastrointestinal: abdomen normal to inspection, abdomen soft to palpation, nontender to palpation, nondistended and normoactive bowel sounds Genitourinary: no CVA tenderness and bladder normal to palpation Back/Pelvis: spine normal to inspection, no thoracic spine tenderness, no lumbar spine tenderness, thoracic spine ROM normal, lumbar spine ROM normal and no paraspinal muscle tenderness noted Extremities: normal to inspection, normal to palpation, no tenderness, full ROM, joint enlargement noted and no deformity Neurology: physician relations manager II-XII intact, no movement abnormality noted, no focal motor deficit noted, sensory deficit noted, deep tendon reflexes 2+ bilaterally, gait abnormality noted, speech normal, coordination normal, no pronator drift noted, no fasciculations noted and GCS normal Psychiatry: Mental Status Exam documented within this Exam's Psych section mental status grossly normal, oriented x3, thought process abnormality noted (racing thoughts), cooperative, affect abnormality noted (anxious), psychomotor abnormality noted (agitated) and (restless) and memory normal Skin: skin color normal, no rash, no lesions, no ecchymosis noted, no wounds, no lacerations, skin turgor normal, no jaundice, no petechiae, no mottling, nails abnormality noted and no alopecia DS: Data Data Completed and Pending Labs on day of discharge: Labs from last 24 hours 02/13/24 04:50 WBC 8.6 RBC 3.9 L Hgb 10.9 L Hct 33.1 L MCV 84.0 MCH 27.7 MCHC 32.9 L RDW 14.4 H Plt Count 161 MPV 7.7 Gran % 89.9 H Lymph % (Auto) 5.8 L [place] % (Auto) 4.2 Eos % (Auto) 0.0 L Baso % (Auto) 0.1 Lymph # (Auto) 0.5 L [place] # (Auto) 0.4 L Eos # (Auto) 0.0 Baso # (Auto) 0.0 Absolute Gran (auto) 7.8 H Sodium 145 Potassium 3.9 Chloride 107.0 Carbon Dioxide 32 Anion Gap 6.0 BUN 13 Creatinine 0.6 Estimated GFR 98.9 Glucose 144 H Calcium 8.6 Phosphorus 4.3 Magnesium 2.0 Total Bilirubin 0.35 AST 51 H ALT 46 Alkaline Phosphatase 58 Total Protein 6.4 Albumin 3.0 L Imaging Chest x-ray: Radiologist's impression: XR CHEST 1V Date of Service: 02/10/24 HISTORY: DYSPNEA; CV COMPARISON: Collection Support Specialist AP chest CT September 24, 2022 FINDINGS: The trachea is midline. The cardiac silhouette is normal in size. Mild emphysema is present. Patchy infiltrate is at right lower lung zones without pleural effusion. The bony thorax is unremarkable. IMPRESSION: Right lung base bronchopneumonia. Chest PA and lateral views Date of Service: 02/12/24 HISTORY: Follow-up pneumonia COMPARISON: 02/10/2024 FINDINGS: Heart size normal with symmetric pulmonary hyperinflation. The left lung remains clear. There is a persistent infiltrate in the medial segment of the right middle lobe. No dominant mass, adenopathy or pleural effusion. IMPRESSION: Unchanged appearance of right middle lobe pneumonia/atelectasis. Discharge Plan Discharge Disposition: Home, Self-Care Condition: Improved Discharge Medications: New diltiazem HCl 120 mg Capsule,Extended Release 12 Hr 120 mg PO DAILY Qty: 30 0RF levalbuterol HCl 1.25 mg/3 mL Solution For Nebulization 1.25 mg inhalation RQ8 Qty: 90 0RF Eliquis 2.5 mg Tablet 5 mg PO BID Qty: 42 0RF Rx Instructions: dose reduction or stop after 21 days as cardiology sees fit Continued ergocalciferol (vitamin D2) 1,250 mcg (50,000 unit) capsule 50,000 unit PO QWEEK gabapentin 800 mg tablet 800 mg PO TID montelukast 10 mg tablet 10 mg PO DAILY ondansetron 8 mg tablet,disintegrating 8 mg PO Q8H PRN (Reason: nausea and vomiting) pantoprazole 40 mg tablet,delayed release (DR/EC) 40 mg PO DAILY Discontinued cefdinir 300 mg capsule 300 mg PO BID Rx Instructions: LAST DOSE ON 02/17/24 levalbuterol HCl 0.63 mg/3 mL solution for nebulization 0.63 mg INHALATION Q4H Discharge Orders: Discharge Order (Routine); Ordered 02/13/24 Ordered By: Jia Hickman Activity: as per physical therapy and increase activity as tolerated Diet: advance to your usual diet Interventions: MED/SURG & ICU Observation Charge Sheet Last Done: 02/13/24 05:52 Patient Instructions: A-fib (Atrial Fibrillation) (DC), COPD (Chronic Obstructive Pulmonary Disease) (DC), GERD (Gastroesophageal Reflux Disease) (DC), Pulmonary Arterial Hypertension (GEN), Community Acquired Pneumonia (DC), Bronchiectasis (GEN), Anxiety (GEN) Activity Restrictions/Additional Instructions: stop albuterol increase water intake and protein intake follow up with Cardiology in [place] per patient request follow up with Dr Alcala pulmonology as patient already uses him follow up for a nuclear stress test as an outpatient follow up her PCP in 1 week or sooner if any concerns or worsening continue to use oxygen at home as needed. Forms: Portal/Health Info Access Inst Follow-Ups: Piter Rob [Primary Care Provider] - 02/22/24 1:40 pm Eriberto Urias MD [Physician] - 02/27/24 1:00 pm Timothy Baer MD [Referring] - 02/16/24 2:00 pm
== END 2024-02-13 11:35 | disposition home or self-care (01) | DRG 308 ==
LOC: ED 09:36 → MS 09:36 → OBSVTOIN 14:33 → MS 14:50
PROVIDERS: ADMIT Nurse Practitioner Family; ATTEND Family Medicine
DX: I48.91 Unspecified atrial fibrillation; G47.00 Insomnia, unspecified; F41.9 Anxiety disorder, unspecified; I47.10 Supraventricular tachycardia, unspecified; I27.20 Pulmonary hypertension, unspecified; J44.1 Chronic obstructive pulmonary disease with (acute) exacerbation; J18.9 Pneumonia, unspecified organism; R09.02 Hypoxemia; K21.9 Gastro-esophageal reflux disease without esophagitis; R06.09 Other forms of dyspnea; F19.11 Other psychoactive substance abuse, in remission